=== PATIENT | female | born 1985 | race Caucasian/White ===

== ENCOUNTER 2022-02-03 11:10 | Emergency (ER) | payer BC ==
--- OUTSIDE RECORDS SUMMARY | 2022-02-03 11:14 | XMS REPORT | Continuity of Care Document ---
:1985 Author Organization [facility] t Address [address] [place] [address] Care Team Providers Name Role Phone Radiology Attending Clinician Unavailable RADIOLOGY Attending Clinician Unavailable Doctor Unassigned, Name Attending Clinician Unavailable Payers Payer Name Policy Type Policy Number Effective Date Expiration Date S ource Problems Condition Condition Condition Status Onset Resolution Last Treating Co mments Source Name Details Category Date Date Treatment Clinician Date Disease Active Overview: Un johnei delivery delivery 4-20 Form[place] ity of delivered delivered 00:00: [place] of this [place] 00 note Medical might be Branch different from the original. ICD10 Diagnosis Term Physician Office Nurse Utility Allergies, Adverse Reactions, Alerts Allergy Allergy Status Severity Reaction(s) Onset Inactive Treating Comm ents Source Name Type Date Date Clinician CODEINE DRUG Active N/V Univers INGREDI 6-12 ity of 00:00: [place] 00 [facility] Branch Codeine Propensi Active Nausea Univers ty to and/or 6-12 ity of adverse Vomiting 00:00: [place] reaction 00 Medical s Branch Social History Social Habit Start Date Stop Date Quantity Comments Source Exposure to Not sure University of SARS-CoV-2 [facility] (event) Branch Tobacco use and 2018-04-16 2018-04-16 Never used Universit y of exposure 00:00:00 00:00:00 [facility] Alcohol intake 2018-04-16 2018-04-16 Current drinker Unive rsity of 00:00:00 00:00:00 of alcohol [facility] (finding) [place] Sex Ass[birth year] At [birth year] Universit y of 00:00:00 00:00:00 [facility] Smoking Status Start Date Stop Date Source Light tobacco smoker 2018-04-16 00:00:00 Univers ity of [facility] Medications Ordered Filled Start Stop Current Ordering Indication Dosage Frequency Signature Comments Components Source Medication Medication Date Date Medication? Clinician (SIG) Name Name ALPRAZolam Yes 1mg Take 1 mg Un johnie 1 mg tablet 7-09 by mouth 2 it y of 19:20: (two) [place] 40 times Medical daily. Branch ALPRAZolam Yes 1mg Take 1 mg Un johnie 1 mg tablet 7-09 by mouth 2 it y of 19:20: (two) [place] 40 times Medical daily. Branch ALPRAZolam Yes 1mg Take 1 mg Un johnie 1 mg tablet 7-09 by mouth 2 it y of 19:20: (two) [place] 40 times Medical daily. Branch ALPRAZolam Yes 1mg Take 1 mg Un johnie 1 mg tablet 7-09 by mouth 2 it y of 19:20: (two) [place] 40 times Medical daily. Branch ALPRAZolam Yes 1mg Take 1 mg Un johnie 1 mg tablet 7-09 by mouth 2 it y of 19:20: (two) [place] 40 times Medical daily. Branch ALPRAZolam Yes 1mg Take 1 mg Un johnie 1 mg tablet 7-09 by mouth 2 it y of 19:20: (two) [place] 40 times Medical daily. Branch ibuprofen Yes 600mg Take 1 Tab U nivers (MOTRIN) 4-22 by mouth ity of 600 mg 00:00: every 6 [place] tablet 00 (six) Medical hours as Branch needed for Pain. Yes 1{tbl} Take 1 Tab U nivers vitamin 4-22 by mouth ity of w/FA 00:00: daily. [place] ( 00 Medical RX OR Branch GENERIC EQUIVALENT) tablet docusate Yes 240mg Take 1 Cap Un johnie calcium 4-22 by mouth ity of (SURFAK) 00:00: once daily [place] as 240 mg 00 as needed Medical capsule for Branch Constipati on. ferrous Yes 325mg Take 1 Tab Uni vers sulfate 325 4-22 by mouth 2 it y of mg (65 mg 00:00: (two) [place] Iron) 00 times Medical tablet daily. Branch hydrocodone Yes 1{tbl} Take 1-2 Univers -acetaminop 4-22 Tabs by ity o f hen (NORCO 00:00: mouth [place] 5) 5-325 mg 00 every 6 Medic al tablet (six) Branch hours as needed for Pain. Not to be administer ed at the same time as [place] 10 if ordered. For patients < 12 years recommend do not exceed 5 doses or 2.6 gm in 24 hours totals for all acetaminop hen containing products. For adults with normal hepatic function recommend do not exceed 4 grams in 24 hours for all acetaminop hen containing products. ibuprofen Yes 600mg Take 1 Tab U nivers (MOTRIN) 4-22 by mouth ity of 600 mg 00:00: every 6 [place] tablet 00 (six) Medical hours as Branch needed for Pain. Yes 1{tbl} Take 1 Tab U nivers vitamin 4-22 by mouth ity of w/FA 00:00: daily. [place] ( 00 Medical RX OR Branch GENERIC EQUIVALENT) tablet docusate Yes 240mg Take 1 Cap Un johnie calcium 4-22 by mouth ity of (SURFAK) 00:00: once daily [place] as 240 mg 00 as needed Medical capsule for Branch Constipati on. ferrous Yes 325mg Take 1 Tab Uni vers sulfate 325 4-22 by mouth 2 it y of mg (65 mg 00:00: (two) [place] Iron) 00 times Medical tablet daily. Branch hydrocodone Yes 1{tbl} Take 1-2 Univers -acetaminop 4-22 Tabs by ity o f hen (NORCO 00:00: mouth [place] 5) 5-325 mg 00 every 6 Medic al tablet (six) Branch hours as needed for Pain. Not to be administer ed at the same time as [place] 10 if ordered. For patients < 12 years recommend do not exceed 5 doses or 2.6 gm in 24 hours totals for all acetaminop hen containing products. For adults with normal hepatic function recommend do not exceed 4 grams in 24 hours for all acetaminop hen containing products. ibuprofen Yes 600mg Take 1 Tab U nivers (MOTRIN) 4-22 by mouth ity of 600 mg 00:00: every 6 [place] tablet 00 (six) Medical hours as Branch needed for Pain. Yes 1{tbl} Take 1 Tab U nivers vitamin 4-22 by mouth ity of w/FA 00:00: daily. [place] ( 00 Medical RX OR Branch GENERIC EQUIVALENT) tablet docusate 2011-0 Yes 240mg Take 1 Cap Un johnie calcium 4-22 by mouth ity of (SURFAK) 00:00: once daily [place] as 240 mg 00 as needed Medical capsule for Branch Constipati on. ferrous Yes 325mg Take 1 Tab Uni vers sulfate 325 4-22 by mouth 2 it y of mg (65 mg 00:00: (two) [place]) 00 times Medical tablet daily. Branch hydrocodone Yes 1{tbl} Take 1-2 Univers -acetaminop 4-22 Tabs by ity o f hen (NORCO 00:00: mouth [place] 5) 5-325 mg 00 every 6 Medic al tablet (six) Branch hours as needed for Pain. Not to be administer ed at the same time as [place] 10 if ordered. For patients < 12 years recommend do not exceed 5 doses or 2.6 gm in 24 hours totals for all acetaminop hen containing products. For adults with normal hepatic function recommend do not exceed 4 grams in 24 hours for all acetaminop hen containing products. ibuprofen Yes 600mg Take 1 Tab U nivers (MOTRIN) 4-22 by mouth ity of 600 mg 00:00: every 6 [place] tablet 00 (six) Medical hours as Branch needed for Pain. Yes 1{tbl} Take 1 Tab U nivers vitamin 4-22 by mouth ity of w/FA 00:00: daily. [place] ( 00 Medical RX OR Branch GENERIC EQUIVALENT) tablet docusate Yes 240mg Take 1 Cap Un johnie calcium 4-22 by mouth ity of (SURFAK) 00:00: once daily [place] as 240 mg 00 as needed Medical capsule for Branch Constipati on. ferrous Yes 325mg Take 1 Tab Uni vers sulfate 325 4-22 by mouth 2 it y of mg (65 mg 00:00: (two) [place]) 00 times Medical tablet daily. Branch hydrocodone Yes 1{tbl} Take 1-2 Univers -acetaminop 4-22 Tabs by ity o f hen (NORCO 00:00: mouth [place] 5) 5-325 mg 00 every 6 Medic al tablet (six) Branch hours as needed for Pain. Not to be administer ed at the same time as [place] 10 if ordered. For patients < 12 years recommend do not exceed 5 doses or 2.6 gm in 24 hours totals for all acetaminop hen containing products. For adults with normal hepatic function recommend do not exceed 4 grams in 24 hours for all acetaminop hen containing products. ibuprofen Yes 600mg Take 1 Tab U nivers (MOTRIN) 4-22 by mouth ity of 600 mg 00:00: every 6 [place] tablet 00 (six) Medical hours as Branch needed for Pain. Yes 1{tbl} Take 1 Tab U nivers vitamin 4-22 by mouth ity of w/FA 00:00: daily. [place] ( 00 Medical RX OR Branch GENERIC EQUIVALENT) tablet docusate Yes 240mg Take 1 Cap Un johnie calcium 4-22 by mouth ity of (SURFAK) 00:00: once daily [place] as 240 mg 00 as needed Medical capsule for Branch Constipati on. ferrous Yes 325mg Take 1 Tab Uni vers sulfate 325 4-22 by mouth 2 it y of mg (65 mg 00:00: (two) [place]) 00 times Medical tablet daily. Branch hydrocodone Yes 1{tbl} Take 1-2 Univers -acetaminop 4-22 Tabs by ity o f hen (NORCO 00:00: mouth [place] 5) 5-325 mg 00 every 6 Medic al tablet (six) Branch hours as needed for Pain. Not to be administer ed at the same time as [place] 10 if ordered. For patients < 12 years recommend do not exceed 5 doses or 2.6 gm in 24 hours totals for all acetaminop hen containing products. For adults with normal hepatic function recommend do not exceed 4 grams in 24 hours for all acetaminop hen containing products. ibuprofen Yes 600mg Take 1 Tab U nivers (MOTRIN) 4-22 by mouth ity of 600 mg 00:00: every 6 [place] tablet 00 (six) Medical hours as Branch needed for Pain. Yes 1{tbl} Take 1 Tab U nivers vitamin 4-22 by mouth ity of w/FA 00:00: daily. [place] ( 00 Medical RX OR Branch GENERIC EQUIVALENT) tablet docusate Yes 240mg Take 1 Cap Un johnie calcium 4-22 by mouth ity of (SURFAK) 00:00: once daily [place] as 240 mg 00 as needed Medical capsule for Branch Constipati on. ferrous Yes 325mg Take 1 Tab Uni vers sulfate 325 4-22 by mouth 2 it y of mg (65 mg 00:00: (two) [place]) 00 times Medical tablet daily. Branch hydrocodone Yes 1{tbl} Take 1-2 Univers -acetaminop 4-22 Tabs by ity o f hen (NORCO 00:00: mouth [place] 5) 5-325 mg 00 every 6 Medic al tablet (six) Branch hours as needed for Pain. Not to be administer ed at the same time as [place] 10 if ordered. For patients < 12 years recommend do not exceed 5 doses or 2.6 gm in 24 hours totals for all acetaminop hen containing products. For adults with normal hepatic function recommend do not exceed 4 grams in 24 hours for all acetaminop hen containing products. Procedures Procedure Date / Time Performed Performing Clinician Sour e XR SHOULDER 2+ VW 2020-11-09 22:42:59 Requisition, Paper [facility]NEE 3 VW BILATERAL 2020-11-09 22:40:51 [facility] 2020-11-09 21:56:06 Doctor Unassigned, No [facility] ASSIGNMENT OF BENEFITS 2020-11-09 21:56:03 Doctor Unassigned, No [facility] XR HAND 3+ VW 2020-09-09 22:23:23 Alhaji Pereira [place] o f [facility] ASSIGNMENT OF BENEFITS 2020-09-09 22:02:05 Doctor Unassigned, No [facility] Encounters Start End Encounter Admission Attending Care Care Encounter Source Date/Time Date/Time Type Type Clinicians Facility Department ID 2021-04-28 2021-04-28 Hospital Radiology [facility] [id number] [id number] Univers 16:38:36 23:59:00 Encounter [place] [id number] ity [place] [id number] [facility] [id number] [facility] 806 Branch 2021-04-28 2021-04-28 Outpatient R RADIOLOGY [facility] [id number] Univers 00:00:00 00:00:00 [id number] ity [facility] 2021-04-28 2021-04-28 Outpatient R RADIOLOGY [facility] [id number] Univers 00:00:00 00:00:00 ity of [facility] 2020-11-09 2020-11-09 Hospital Radiology [facility] [id number] Univers 16:13:32 23:59:00 Encounter [place] [id number] ity of [place] [id number] [id number] [address] 2020-11-09 2020-11-09 Outpatient R RADIOLOGY [facility] [id number] Univers 16:15:00 16:15:00 ity of [facility] 2020-11-09 2020-11-09 [facility] Radiology [facility] [id number] Univers 16:10:42 16:12:00 Encounter [place] [id number] ity of [place] [id number] [facility] [id number] [address] 2020-11-09 2020-11-09 Outpatient R RADIOLOGY [facility] [id number] Univers 00:00:00 00:00:00 ity of [facility] 2020-11-09 2020-11-09 Orders Doctor CYNTHIA [id number] Univers 00:00:00 00:00:00 Only Unassigned, AMEE [id number] ity of [place] [facility] [id number] [place] [id number] [place] [address] Branch 2020-09-09 2020-09-09 [facility] Radiology [facility] [id number] Univers 16:03:35 23:59:00 Encounter [place] [id number] ity of [place] [id number] [facility] [id number] [address] 2020-09-09 2020-09-09 Outpatient R RADIOLOGY [facility] [id number] Univers 16:15:00 16:15:00 ity of [facility] 2020-09-09 2020-09-09 Outpatient R RADIOLOGY [facility] [id number] Univers 00:00:00 00:00:00 ity of [facility] Branch 2020-09-09 2020-09-09 Orders Doctor CYNTHIA [id number] Univers 00:00:00 00:00:00 Only Unassigned, AMEE [id number] ity of [place] [facility] [id number] [place] [id number] [facility] 009 Branch Results Test Test Test Results Result Source Description Time Comments Comments XR SHOULDER 2+ 2020-11- No acute osseous Univ ersity of VW BILATERAL 01 abnormality of the right [facility] 22:57:29 or left shoulder. RL: 5611 Branch END OF REPORT Ordering Physician: IBAN KENNEY Clinical Indication: PAIN Additional Clinical Information: Comparison: None Technique: 2 views of the left shoulder and 2 views of the right shoulder Findings: There is normal bone mineralization. There is no glenohumeraldislocation of the left shoulder. The right shoulder is normal alignment AC joint. There is no glenohumeraldislocation of the right shoulder. There is no significant enthesophyteformation. There are no abnormal soft tissue test stations. [facility], Radiant Results Inft User - 11/09/2020 4:58 PM CSTOrdering Physician: IBAN MCDONALDINClinical Indication: PAIN Additional Clinical Information:Comparison: NoneTechnique: 2 views of the left shoulder and 2 views of the right shoulderFindings: There is normal bone mineralization. There is no glenohumeraldislocation of the left shoulder.The right shoulder is normal alignment AC joint. There is no glenohumeraldislocation of the right shoulder. There is no significant enthesophyteformation. There are no abnormal soft tissue test stations.IMPRESSIONNo acute osseous abnormality of the right or left shoulder.RL: 5611END OF REPORT KNEE 3 VW 2020-11- No acute or focal osseous University of BILATERAL 01 abnormality of the right [facility] 22:56:34 or leftknee. RL: 5611 [facility] END OF REPORT Ordering Physician: IBAN KENNEY Clinical Indication: PAIN Additional Clinical Information: Comparison: None Technique: 3 views the right knee and 3 views of the left knee Findings: In the right knee there is normal bone mineralization. There areno meniscal medications. No significant osteophyte formation. In the left knee there is normal bone mineralization. There is nosignificant osteophyte formation. There is no effusion. There are noabnormal soft tissue calcifications. [facility], Radiant Results Inft User - 11/09/2020 4:57 PM CSTOrdering Physician: IBAN LEWISlinical Indication: PAIN Additional Clinical Information:Comparison: NoneTechnique: 3 views the right knee and 3 views of the left kneeFindings: In the right knee there is normal bone mineralization. There areno meniscal medications. No significant osteophyte formation.In the left knee there is normal bone mineralization. There is nosignificant osteophyte formation. There is no effusion. There are noabnormal soft tissue calcifications.IMPRESSIONN o acute or focal osseous abnormality of the right or leftknee.RL: 5611END OF REPORT HAND 3+ VW 2020-09- HISTORY: ?Pain. FINDINGS: [facility] 02 AP, lateral, oblique views [facility] 22:24:24 of left hand as well as a Branch right handshowed no acute fracture or dislocation. No soft tissue calcifications orbony erosions or juxta-articular osteoporosis detected. No significantchanges of arthritis or aggressive bone lesions seen. CONCLUSIONS: Normal studies. [facility], Radiant Results Inft User - 09/09/2020 4:25 PM CSTHISTORY: Pain.FINDINGS: AP, lateral, oblique views of left hand as well as a right handshowed no acute fracture or dislocation. No soft tissue calcifications orbony erosions or juxta-articular osteoporosis detected. No significantchanges of arthritis or aggressive bone lesions seen.CONCLUSIONS: Normal studies.
[2022-02-03 12:09] LABS: Absolute Lymphocytes (CBC) 2.2 K/uL (0.7-4.9); Hematocrit 44.2 % (36.0-45.0); Lymphocytes % 43.4 % (15.3-44.8); MPV 8.4 fL (7.6-11.3); RBC Red Blood Cell Count 4.53 M/uL (3.86-4.86)
[2022-02-03 12:14] LABS: Protime INR 1.11
[2022-02-03] MEDS ORDERED: NA CHLORIDE 0.9% 1,000 ML ONE (12:29)
[2022-02-03 12:32] LABS: ALT/SGPT 35 U/L (12-78); AST/SGOT 22 U/L (15-37); Albumin 4.1 g/dL (3.4-5.0); Alkaline Phosphatase 75 U/L (45-117); BUN Blood Urea Nitrogen 5 mg/dL (7-18); Bicarbonate 28 mmol/L (21-32); Bilirubin Direct < 0.1 mg/dL (0-0.2); Bilirubin Total 0.2 mg/dL (0.2-1.0); Glucose Level 87 mg/dL (74-106); Potassium 3.8 mmol/L (3.5-5.1); Protein, Total 7.4 g/dL (6.4-8.2); Sodium Level 144 mmol/L (136-145)
--- NOTE | 2022-02-03 14:39 | EDPHYS ---
Physician Documentation [facility] Name: Candy Sinha Age: 36 yrs Sex: Female : 1985 Arrival Date: 02/03/2022 Time: 11:13 Bed 7 Private MD: ED Physician Danelle Murillo HPI: 02/03 11:45 This 36 yrs old Female presents to ER via Ambulatory with complaints of Mental jmm Evaluation Dr farley. 11:45 The patient presents to the emergency department with paranoia. jmm 13:01 Past psychiatric history: Psychiatric medications include: Xanax, Prozac, Abilify. jmm Associated signs and symptoms: Pertinent positives; paranoia. The patient has experienced similar episodes in the past. This is a 36-year-old female with history of bipolar, that presents emerged department with complaints of insomnia over the past 3 days with increased depression, patient denies suicidal ideations. Patient was recently started on Prozac with no relief of symptoms.. Historical: - Allergies: 11:29 Codeine; ll1 - PMHx: 11:29 Bipolar disorder; borderline personality disorder; ll1 - PSHx: 11:29 section; ll1 - Immunization history:: Client reports having NOT received the Covid vaccine. Flu vaccine status is unknown. - Social history:: Smoking status: Patient reports the use of cigarette tobacco products, denies chronic smoking, but will smoke occasionally, smokes one-half pack cigarettes per day. ROS: 13:01 Constitutional: Negative for fever, chills, and weight loss, Cardiovascular: Negative jmm for chest pain, palpitations, and edema, Respiratory: Negative for shortness of breath, cough, wheezing, and pleuritic chest pain, Abdomen/GI: Negative for abdominal pain, nausea, vomiting, diarrhea, and constipation. 13:01 Psych: Positive for insomnia. 13:01 All other systems are negative. Exam: 13:01 Constitutional: This is a well developed, well nourished patient who is awake, alert, jmm and in no acute distress. Head/Face: atraumatic. Eyes: EOMI, no conjunctival erythema appreciated ENT: Moist Mucus Membranes Neck: Trachea midline, Supple Chest/axilla: Normal chest wall appearance and motion. Cardiovascular: Regular rate and rhythm. No edema appreciated Respiratory: Normal respirations, no respiratory distress appreciated Abdomen/GI: Non distended, soft Back: Normal ROM Skin: General appearance color normal MS/ Extremity: Moves all extremities, no obvious deformities appreciated, no edema noted to the lower extremities Neuro: Awake and alert 13:01 Psych: Behavior/mood is pleasant, cooperative, anxious, depressed. Vital Signs: 11:31 BP 106 / 72; Pulse 128; Resp 17; Temp 98.9; Pulse Ox 100% ; Weight 61.23 kg; Height 5 ll1 ft. 2 in. (157.48 cm); Pain 0/10; 12:37 BP 94 / 68; Pulse 119; Pulse Ox 100% on R/A; ap3 13:22 BP 100 / 79; Pulse 98; Pulse Ox 99% on R/A; ap3 14:09 BP 95 / 72; Pulse 98; Pulse Ox 99% on R/A; ap3 11:31 Body Mass Index 24.69 (61.23 kg, 157.48 cm) ll1 MDM: 11:45 Patient medically screened. [facility] 13:04 Data reviewed: vital signs, nurses notes. [facility] 14:36 Counseling: I had a detailed discussion with the patient and/or guardian regarding: the [facility] historical points, exam findings, and any diagnostic results supporting the discharge/admit diagnosis, lab results, the need to transfer to another facility. ED course: I discussed the patient with Dr. Condon whom recommended transfer for ch[place]o. . 14:58 ED course: I discussed the patient with Psychiatry whom accepted the patient to his [facility] service. . 02/03 11:45 Order name: Acetaminophen; Complete Time: 12:33 [facility] 02/03 11:45 Order name: Basic Metabolic Panel; Complete Time: 12:33 [facility] 02/03 11:45 Order name: CBC with Diff; Complete Time: 12:13 [facility] 02/03 11:45 Order name: ETOH Level; Complete Time: 12:32 [facility] 02/03 11:45 Order name: Hepatic Function; Complete Time: 12:33 [facility] 02/03 11:45 Order name: PT-INR; Complete Time: 12:15 [facility] 02/03 11:45 Order name: Ptt, Activated; Complete Time: 12:15 [facility] 02/03 11:45 Order name: Salicylate; Complete Time: 12:42 [facility] 02/03 12:25 Order name: COVID-19 SARS RT PCR (Document "Date of Onset" if Symptomatic); Complete ss Time: 13:36 02/03 18:09 Order name: Diet Finger Food; Complete Time: 18:10 cook 02/03 11:45 Order name: IV Saline Lock; Complete Time: 12:22 [facility] 02/03 11:45 Order name: Labs collected and sent; Complete Time: 12:22 [facility] Administered Medications: 12:30 Drug: NS 0.9% 1000 ml Route: IV; Rate: 1 bolus; Site: right antecubital; ap3 19:14 Follow up: IV Status: Completed infusion; IV Intake: 1000ml ap3 Disposition Summary: 02/03/22 14:38 Transfer Ordered Transfer Location: Psych Facility [facility] Reason: Higher level of care [facility] Condition: Stable [facility] Problem: an acute exacerbation jm Symptoms: are unchanged [facility] Accepting Physician: Psychiatry(02/03/22 19:16) vc1 Diagnosis - Bipolar disorder, current episode manic severe with psychotic features [facility] Forms: - Medication Reconciliation Form [facility] - SBAR form [facility] Signatures: Dispatcher [employer] EDMS Beau Aguirre PA PA [facility] Anne Ramachandran RN RN ap3 Alyssa Handy RN RN ll1 Kylah Sommers RN RN vc1 Corrections: (The following items were deleted from the chart) 12:23 11:45 Suicide Screening ([place]) ordered. [facility] ap3 19:16 14:38 Psychiatry [facility] vc1
--- NOTE | 2022-02-03 14:39 | ER ---
Nurse's Notes [facility] Name: Candy Sinha Age: 36 yrs Sex: Female : 1985 Arrival Date: 02/03/2022 Time: 11:13 Bed 7 Private MD: Diagnosis: Bipolar disorder, current episode manic severe with psychotic features Presentation: 02/03 11:31 Chief complaint: Patient states: Called Dr. Benoit today to get her Prozac ll1 prescription dosage increased. States she stopped taking Prozac 1 week ago when it stopped working for her. She is very anxious, but denies SI at this time. Sent in for mental health eval. Coronavirus screen: Vaccine status: Patient reports being unvaccinated. Client denies travel out of the [place] in the last 14 days. At this time, the client does not indicate any symptoms associated with coronavirus-19. Ebola Screen: Patient denies travel to an Ebola-affected area in the 21 days before illness onset. Initial Sepsis Screen: Does the patient meet any 2 criteria? No. Patient's initial sepsis screen is negative. Does the patient have a suspected source of infection? No. Patient's initial sepsis screen is negative. Risk Assessment: Do you want to hurt yourself or someone else? Patient reports no desire to harm self or others. Onset of symptoms was January 27, 2022. 11:31 Method Of Arrival: Ambulatory ll1 11:31 Acuity: ELIZABETH 3 ll1 Triage Assessment: 11:36 General: Appears uncomfortable, Behavior is cooperative, appropriate for age, anxious. ll1 Pain: Denies pain. Neuro: Reports anxiety. Historical: - Allergies: 11:29 Codeine; ll1 - PMHx: 11:29 Bipolar disorder; borderline personality disorder; ll1 - PSHx: 11:29 section; ll1 - Immunization history:: Client reports having NOT received the Covid vaccine. Flu vaccine status is unknown. - Social history:: Smoking status: Patient reports the use of cigarette tobacco products, denies chronic smoking, but will smoke occasionally, smokes one-half pack cigarettes per day. Screenin:31 Abuse screen: Denies threats or abuse. Nutritional screening: No deficits noted. ap3 Tuberculosis screening: No symptoms or risk factors identified. Fall Risk None identified. Assessment: 12:37 General: Appears in no apparent distress. comfortable, Behavior is cooperative, ap3 anxious. Pain: Denies pain. Neuro: Level of Consciousness is awake, alert, obeys commands, Oriented to person, place, time, situation, Gait is steady, Speech is normal. Cardiovascular: Patient's skin is warm and dry. Respiratory: Airway is patent Respiratory effort is even, unlabored, Respiratory pattern is regular, symmetrical. Vital Signs: 11:31 BP 106 / 72; Pulse 128; Resp 17; Temp 98.9; Pulse Ox 100% ; Weight 61.23 kg; Height 5 ll1 ft. 2 in. (157.48 cm); Pain 0/10; 12:37 BP 94 / 68; Pulse 119; Pulse Ox 100% on R/A; ap3 13:22 BP 100 / 79; Pulse 98; Pulse Ox 99% on R/A; ap3 14:09 BP 95 / 72; Pulse 98; Pulse Ox 99% on R/A; ap3 11:31 Body Mass Index 24.69 (61.23 kg, 157.48 cm) 1 ED Course: 11:13 Patient arrived in ED. mr 11:21 Arm band placed on Patient placed in an exam room, on a stretcher. 1 11:32 Beau Aguirre PA is PHCP. [facility] 11:32 Danelle Murillo MD is Attending Physician. [facility] 11:36 Triage completed. ll1 12:02 Inserted saline lock: 20 gauge in right antecubital area, using aseptic technique. zm Blood collected. 12:03 Salicylate Sent. zm 12:03 ETOH Level Sent. zm 12:03 CBC with Diff Sent. zm 12:03 Basic Metabolic Panel Sent. zm 12:03 Hepatic Function Sent. zm 12:04 PT-INR Sent. zm 12:04 Ptt, Activated Sent. zm 12:04 Acetaminophen Sent. zm 12:30 Anne Ramachandran, ARIELLA is Primary Nurse. ap3 12:31 Patient has correct armband on for positive identification. Bed in low position. Call ap3 light in reach. Side rails up X 1. Pulse ox on. NIBP on. Door closed. Noise minimized. 14:25 \T\1330 FAXED CHART TO [facility] \T\[facility] \T\1423 SPOKE WITH [facility] TO INITIATE NURSE kj1 TO NURSE. 16:30 1513 ADMIN APPROVAL DEANN BLANCA ACCEPTED BY DR. VALENTIN \T\1625 SPOKE WITH [place] [id number] [facility] TO SECURE TRANSFER. 19:13 No provider procedures requiring assistance completed. ap3 Administered Medications: 12:30 Drug: NS 0.9% 1000 ml Route: IV; Rate: 1 bolus; Site: right antecubital; ap3 19:14 Follow up: IV Status: Completed infusion; IV Intake: 1000ml ap3 Intake: 19:14 IV: 1000ml; Total: 1000ml. ap3 Outcome: 14:38 ER care complete, transfer ordered by MD. myers 19:13 Transferred by ground EMS ap3 19:13 Condition: stable 19:13 Discharge instructions given to patient, Instructed on the need for transfer, Demonstrated understanding of instructions. 19:16 Patient left the ED. vc1 Signatures: Beau Aguirre PA PA jmm Suni Mccoy, Anne, RN RN ap3 Lenore Coffey1 Alyssa Handy RN RN dayna1 Kylah Sommers RN RN vc1 Loni Bonner
[2022-02-03 21:16] VITALS: TEMP 98.9
[2022-02-03 21:18] VITALS: O2SAT 99
[2022-02-03 21:19] VITALS: BP 95/72
== END 2022-02-03 19:16 ==
LOC: ER 11:10
DX: F31.2 Bipolar disorder, current episode manic severe with psychotic features (principal); F17.210 Nicotine dependence, cigarettes, uncomplicated; Z88.5 Allergy status to narcotic agent; Z20.822 Contact with and (suspected) exposure to COVID-19
CPT/HCPCS: 96361; 85025; 80048; 36415; 80320; 80329 ×2; 85610; 80076; 85730; 96360; 99285; U0003; J7030